=== PATIENT | female | born 1990 | race Caucasian/White ===

== ENCOUNTER 2022-01-31 18:50 | Emergency (ER) | payer OTHER ==
[2022-01-31 19:00] VITALS: BP 123/86; PULSE 100; RESP 18; TEMP 97.8; BMI 23.6
[2022-01-31] MEDS ORDERED: IBUPROFEN 600 MG TABLET (FP) PO ONE ×2 (20:09→20:11)
== END 2022-01-31 20:36 | disposition home or self-care (01) ==
LOC: JERFT 18:50
PROC: 0RSJXZZ Reposition Right Shoulder Joint, External Approach (ICD-10-PCS; principal; 2022-01-31)
DX: S43.004A Unspecified dislocation of right shoulder joint, initial encounter (principal); W01.0XXA Fall on same level from slipping, tripping and stumbling without subsequent striking against object, initial encounter
CPT/HCPCS: 73030-TC-RT-FY; 99283-25